=== PATIENT | female | born 1995 | race Caucasian/White ===

== ENCOUNTER 2016-10-15 06:14 | Inpatient (IN) | payer MEDICAID ==
[2016-10-15] VITALS (29 sets, daily range): BP systolic 94–131; BP diastolic 51–78
[~2016-10-15] VITALS: Ht 160 cm; Wt 85.9 kg
[~2016-10-15 06:14] MED LIST: ALBU8.5H6 IH; AZIT250T5 PO; IBUP-15 PO; PREN-46 PO
[2016-10-15] MEDS ORDERED: OXYTOCIN INJ 20 UNIT in NS 1000ml 1,000 ML IV PRN (06:23)
[2016-10-15] MEDS ORDERED: CALCIUM CARBONATE CHEWABLE 300 MG (TUMS) TABLET PO PRN ×2 (06:25→19:40)
--- OUTSIDE RECORDS SUMMARY | 2016-10-15 06:25 | XMS REPORT | Continuity of Care Document ---
Author Author [facility] Address Unknown Phone Unavailable Allergies Active Description Code Type Severity Reaction Onset Reported/Identified Relationship to Patient Clinical Status Yes No Known Drug Allergies [id number] Drug Allergy Unknown N/ A 11/13/2013 Medications Problems Date Dx Coded Attending Type Code Diagnosis Diagnosed By 11/15/2013 HERMINIO SOSA MD Ot 649.01 TOBACCO USE DISORDER COMP PREG/ CHILDBIRT 11/15/2013 HERMINIO SOSA MD Ot 659.71 ABN DEL FET HT RT/RHYTHM,W OR W/O MENTIO 11/15/2013 HERMINIO SOSA MD Ot V27.0 DELIVER-SINGLE LIVEBORN 04/26/2016 HERMINIO SOSA MD Ot V28.81 ENCOUNTER FOR ANATOMIC SURVEY 05/08/2016 HERMINIO SOSA MD Ot V28.81 ENCOUNTER FOR ANATOMIC SURVEY 05/18/2016 MANI PIMENTEL MD Ot Z36 ENCOUNTER FOR SCREENING OF MOT Procedures Code Description Performed By Performed On 72.79 VACUUM EXTRACT DEL NEC 11/13/2013 73.09 ARTIF RUPT MEMBRANES NEC 11/13/2013 96.49 OTHER INSTILLATION 11/13/2013 Results Encounters ACCT No. Visit Date/Time Discharge Status Pt. Type Provider Facility Loc./Unit Complaint [id number] 11/13/2013 06:00:00 2013 14:15:00 DIS Inpatient HERMINIO SOSA MD [facility] OB VAG DELIVERY [id number] 06/16/2013 13:13:00 2012 23:59:59 CLS Outpatient HERMINIO SOSA MD [facility] RAD SMOKER [id number] 05/15/2016 14:29:00 ACT Outpatient MANI PIMENTEL MD [facility] RAD ANATOMIC SURVEY
[2016-10-15] MEDS ORDERED: AMPICILLIN INJ 2,000 MG in SODIUM CHLORIDE 100 ML IV SCH (07:00)
[2016-10-15] MEDS ORDERED: AMPICILLIN 2000 MG VIAL ONE (07:09)
[2016-10-15] MEDS ORDERED: SODIUM CHLORIDE 100 ML ONE (07:17)
[2016-10-15] MEDS: MISOPROSTOL 25 MCG (CYTOTEC) TABLET PV SCH ×2 (07:29→11:07)
[2016-10-15 07:44] LABS: MEAN CORPUSCULAR HEMOGLOBIN 31.4 PG (26.0-34.0); MEAN PLATELET VOLUME 10.9 FL (6.0-9.5); WHITE BLOOD COUNT 10.42 10^3uL (4.0-11.0)
--- NOTE | 2016-10-15 08:19 | History and Physical (E) ---
History & Physical (OB) Subjective: CC: induction 21 year old at 40 1/7 WGA by 8 week US presents for elective induction. She reports occasional contractions, good FM, no VB and no LOF. complicated by smoking. PNC: [facility] Hx: x1, SAB at 4 wks x1, no intervention PMHx: seasonal allergies, history of depression PSHx: FOB [employer]. Works at [employer]. Smokes 1/4 ppd. No alcohol or ILD. Allergies: Coded Allergies: No Known Drug Allergies (Unverified , 11/13/13) Home Medications: Reported Medications Ibuprofen (Motrin IB)200 Mg Qjdala031 Mg PO Q6H PRN CRAMPS 11/15/13 Pnv With Ca,No.71/Iron/Fa (Prenaplus Tablet)1 Each Tablet1 Each PO DAILY 11/15/13 Objective: Vital Signs Date Time Temp Pulse Resp B/P Pulse Ox O2 Delivery O2 Flow Rate FiO2 10/15/16 07:12 98.6 109 16 121/73 109 Laboratory Results Past 24 Hrs 10/15/16 07:30: Hematocrit 35.80, Hemoglobin 11.8, Mean Corpuscular Hemoglobin 31.4, Mean Corpuscular Hemoglobin Concent 33.0, Mean Corpuscular Volume 95, Mean Platelet Volume 10.9, Platelet Count 192, Red Blood Count 3.76, Red Cell Distribution Width 14.5, White Blood Count 10.42 General: Alert and oriented, NAD Chest: CTA Abdomen: Gravid Cardiovasular: RRR, No murmur Extremities: No edema FHT's: 150s mod reactive, +accels, no decels. Cat I. Cvx: 2/50/-3 [place]: Q4-5min Screenings: Blood type: A Positive, Rubella Immune, RPR non-reactive, HBV Negative, HIV Negative , GBS Positive. Problems/Plans: (1) 40 weeks gestation of Assessment & Plan: 1st cytotec dose placed at 07:30. Continue expectant management. Epidural when desired. (2) GBS (group B Streptococcus carrier), +RV culture, currently Assessment & Plan: Ampicillin started. Additional Copies to: End of Report . MANI PIMENTEL MD Oct 15, 2016 08:19
[2016-10-15] MEDS: AMPICILLIN INJ 1,000 MG in SODIUM CHLORIDE 50 ML IV SCH ×2 (12:20→16:06)
--- NOTE | 2016-10-15 12:44 | Progress Note (E) ---
Progress Note Called to bedside due to late decels x2, and another since I arrived. Good recovery in between with good variability. 2nd dose of cytotec placed at 11:30. Cvx 3/50/very high and presenting part uncertain. Bedside ultrasound done and vertex confirmed. After patient voided 1000ml of urine, recheck cvx was much better, with 4/70/-3 and presenting part as vertex felt. Will monitor. MANI PIMENTEL MD Oct 15, 2016 12:44
[2016-10-15] MEDS ORDERED: ROPIVACAINE 1% 10 MG/ML (NAROPIN) 20 ML AMPUL ONE (14:04)
[2016-10-15 15:39] LABS: BILIRUBIN,URINE Negative (Negative); CLARITY,URINE Clear; COLOR,URINE Yellow; GLUCOSE, URINE (UA) Negative (Negative); LEUKOCYTE ESTERASE ,URINE Negative (Negative); UROBILINOGEN,URINE 0.2 mg/dL (0.2-1.0)
--- NOTE | 2016-10-15 17:03 | Progress Note (E) ---
Progress Note Epidural in, patient comfortable. Pit at 3. FHT 150s, mod reactive, occ variable decels, no accels, Cat II. Ctx q2min. AROM performed, clear fluid returned. Cvx 4-5/70/-3. Continue with slow pit increase to induce cervical change. MANI PIMENTEL MD Oct 15, 2016 17:03
[2016-10-15] MEDS ORDERED: LANOLIN OINTMENT 28 GM TUBE TOP PRN (19:15)
[2016-10-15] MEDS ORDERED: CALCIUM CARBONATE CHEWABLE 300 MG (TUMS) TABLET ONE (19:26)
[2016-10-15] MEDS: IBUPROFEN 600 MG (MOTRIN) TAB PO PRN (20:53)
[2016-10-15] MEDS: DOCUSATE SODIUM 100 MG (COLACE) CAP PO SCH ×2 (20:54→20:58)
[2016-10-16] MEDS: HYDROcodone/APAP 5 MG/325 MG (NORCO) TAB PO PRN ×4 (00:28→22:37)
[2016-10-16] MEDS: IBUPROFEN 600 MG (MOTRIN) TAB PO PRN ×2 (04:55→11:26)
[2016-10-16 09:00] VITALS: BP 110/61
--- NOTE | 2016-10-16 12:01 | Vaginal Delivery Summary (E) ---
Vaginal Delivery Summary At 18:50 on 10/15/16 this 21 year old G3 now P2 spontaneously delivered a viable male at 40.1 weeks gestation. The patient presented for care at 8 weeks and ultrasound at that time established dates. This complications: smoker Maternal labs: Blood type: A Positive, Hgb 12.8, Rubella Immune, RPR non- reactive, HBV Negative, HIV Negative , GBS Positive. Tdap booster received on 2016. Flu booster received on 08/10. She presented for elective induction of labor. At presentation, she was 1 cm dilated. 25mcg cytotec was placed. Ampicillin was started for GBS prophylaxis, and 3 doses were received. After 4 hours, she progressed to 3cm, with an irregular contraction pattern, so another dose of cytotec was placed. Epidural was placed at 14:16 by Dieter Romano CRNA, with good pain relief. After another 4 hours, no progress was made, so pitocin was started for augmentation. On at 17:00, AROM was performed by Dr. Dee with Clear fluid returned. At 1830, she was complete. She pushed for 2 contractions. The head presented occiput anterior and delivered easily, followed by the anterior shoulder. There was a tight nuchal cord x1 that was not reduced. The posterior shoulder and the body followed in a controlled fashion and baby was placed on mom's abdomen. The cord was allowed to pulse for 3 minutes and then clamped x2 by me and cut by father of the baby. The placenta then delivered spontaneously and intact, with 3 vessel cord noted. The pitocin bag was run in. There were minor labial abrasions that were not repaired. Estimated blood loss 25 ml. weight: 7 pounds, 12 ounces, 3520 grams. Apgars: 9 at 1 minute, 9 at 5 minutes, and 9 at 10 minutes. Both mom and baby are stable at this time. MANI DEE MD Oct 15, 2016 19:12
--- NOTE | 2016-10-16 12:42 | Progress Note (E) ---
Post- Progress Note Subjective: Doing well. Ambulating, voiding, passing flatus. No BM. Tolerating full diet. Bleeding minimal. Pain controlled. Nursing going well other than sleepy baby. Objective: Vital Signs Date Time Temp Pulse Resp B/P Pulse Ox O2 Delivery O2 Flow Rate FiO2 10/16/16 09:00 96.7 68 16 110/61 Room air I & O 10/15/16 10/16/16 19:00 07:00 Intake Total 3100 ml 500 ml Output Total 1400 ml 800 ml Balance 1700 ml -300 ml Laboratory Tests 10/15/16 15:15: Urine Bilirubin Negative, Urine Blood Negative, Urine Clarity Clear, Urine Collection Type Catheter, Urine Color Yellow, Urine Glucose (UA) Negative, Urine Ketones Negative, Urine Leukocyte Esterase Negative, Urine Nitrite Negative, Urine Protein Negative, Urine Specific [place] 1.015, Urine Urobilinogen 0.2, Urine pH 7.0 10/16/16 06:50: Hematocrit 31.30, Hemoglobin 10.3 Blood type: A Positive, Current Medications Ibuprofen 600 mg Q6H PRN PO Last administered on 10/16/16 11:26; Admin Dose 600 MG; Start 10/15/16 at 19:15 Docusate Sodium 100 mg HS PO; Start 10/15/16 at 21:00 Lanolin 28 gm PRN PRN TOP; Start 10/15/16 at 19:15 Acetaminophen/ Hydrocodone Bitart Total acetaminophen not... Q4H PRN PO Last administered on 10/16/16 05:35; Admin Dose 1 TAB; Start 10/15/16 at 19:15 Calcium Carbonate 1-2 tablets PO q4 ho... Q4H PRN PO Last administered on 19:42; Admin Dose 600 MG; Start 10/15/16 at 19:40 General: Alert and oriented, NAD Abdomen: Soft, non-distended, fundus firm Extremities: No edema Problems/Plans: (1) Delivery normal Assessment & Plan: Routine cares. Plan discharge tomorrow. MANI PIMENTEL MD Oct 16, 2016 12:42
[2016-10-16] MEDS: DOCUSATE SODIUM 100 MG (COLACE) CAP PO SCH (20:53)
[2016-10-16 21:05] VITALS: BP 112/78
--- NOTE | 2016-10-16 22:00 | NUR ---
Discharge teaching done for herself and with significant other present and involved.
[2016-10-17] MEDS: IBUPROFEN 600 MG (MOTRIN) TAB PO PRN ×2 (01:30→07:56)
[2016-10-17 08:00] VITALS: BP 106/65
[2016-10-17] MEDS: HYDROcodone/APAP 5 MG/325 MG (NORCO) TAB PO PRN (09:28)
[2016-10-17] MEDS ORDERED: LANO28OI TOP (12:03)
[2016-10-17] MEDS ORDERED: DOCU100C8 PO (12:03)
[2016-10-17] MEDS ORDERED: HYDR-33 PO (12:24)
--- NOTE | 2016-10-17 12:24 | Progress Note (E) ---
Post- Progress Note Subjective: Doing well. Nursing going well. Ambulating, voiding. Pain controlled. Objective: Vital Signs Date Time Temp Pulse Resp B/P Pulse Ox O2 Delivery O2 Flow Rate FiO2 10/17/16 08:00 97.7 85 16 106/65 98 Room air Blood type: A Positive, Current Medications Ibuprofen 600 mg Q6H PRN PO Last administered on 10/17/16 07:56; Admin Dose 600 MG; Start 10/15/16 at 19:15 Docusate Sodium 100 mg HS PO Last administered on 10/16/16 20:53; Admin Dose 100 MG; Start 10/15/16 at 21:00 Lanolin 28 gm PRN PRN TOP; Start 10/15/16 at 19:15 Acetaminophen/ Hydrocodone Bitart Total acetaminophen not... Q4H PRN PO Last administered on 10/17/16 09:28; Admin Dose 1 TAB; Start 10/15/16 at 19:15 Calcium Carbonate 1-2 tablets PO q4 ho... Q4H PRN PO Last administered on 19:42; Admin Dose 600 MG; Start 10/15/16 at 19:40 General: Alert and oriented, NAD Abdomen: Soft, non-distended, fundus firm Extremities: No edema Problems/Plans: (1) Delivery normal Assessment & Plan: Discharge today. MANI PIMENTEL MD Oct 17, 2016 11:58
== END 2016-10-17 14:30 | disposition home or self-care (01) | DRG 775 ==
LOC: OB 06:22
PROVIDERS: ADMIT Family Medicine; ATTEND Family Medicine
PROC: 10E0XZZ Delivery of Products of Conception, External Approach (ICD-10-PCS; principal; 2016-10-15)
PROC: 3E0P7GC Introduction of Other Therapeutic Substance into Female Reproductive, Via Natural or Artificial Opening (ICD-10-PCS; 2016-10-15)
PROC: 10907ZC Drainage of Amniotic Fluid, Therapeutic from Products of Conception, Via Natural or Artificial Opening (ICD-10-PCS; 2016-10-15)
DX: O99.824 Streptococcus B carrier state complicating childbirth (principal); Z3A.40 40 weeks gestation of pregnancy; Z37.0 Single live birth; O76 Abnormality in fetal heart rate and rhythm complicating labor and delivery; O99.334 Smoking (tobacco) complicating childbirth
CPT/HCPCS: 36415; 81003; 85014; 85018; 85027; 86850; 86900; 86901